=== PATIENT | male | born 1990 | race Caucasian/White ===

== ENCOUNTER 2016-12-17 07:42 | Emergency (ER) | payer MEDICAID ==
[2016-12-17 07:54] VITALS: BP 161/84
[2016-12-17] MEDS ORDERED: Bupivacaine 0.5% 10 ML SDV INJECT ONE (08:03)
--- NOTE | 2016-12-17 08:07 | EDM.PDOC ---
ED HPI ENT - General Chief Complaint: ENT Problem Stated Complaint: BROKEN TOOTH Time Seen by Provider: 12/17/16 07:57 Source of Information: Reports: Patient History Limitations: Reports: No limitations - History of Present Illness INITIAL COMMENTS - FREE TEXT/NARRATIVE: The patient presents with a fractured tooth. This happened a couple days ago. It is in the right lower jaw and the 2nd molar is broken. He denies fever or chills. Timing/Duration: Reports: Day(s): (2) Severity: severe Location: Reports: mouth Quality: Reports: Sharp Improves with: Reports: None Worsens with: Reports: None Associated Symptoms: Reports: no other symptoms - Related Data Allergies/ADRs: Allergies Allergy/AdvReac Type Severity Reaction Status Date / Time amoxicillin Allergy Nausea and Verified 12/17/16 07:54 Vomiting Penicillins Allergy Nausea and Verified 12/17/16 07:54 Vomiting Home Meds: Home Meds Clindamycin HCl 150 mg PO Q6HR #30 capsule 12/17/16 [Rx] oxyCODONE HCl/Acetaminophen [Percocet 5-325 mg Tablet] 1 - 2 each PO Q6HR PRN # 20 tablet 12/17/16 [Rx] Past Medical History - Past Health History Medical/Surgical History: Denies Medical/Surgical History - Past Surgical History HEENT Surgical History: Reports: Adenoidectomy, Oral surgery, Tonsillectomy Social & Family History - Tobacco Use Smoking Status *Q: Never Smoker - Caffeine Use Caffeine Use: Reports: None - Recreational Drug Use Recreational Drug Use: Yes Drug Use in Last 12 Months: Yes Recreational Drug Type: Reports: Marijuana/Hashish Recreational Drug Use Frequency: Socially ED ROS ENT - Review of Systems Review Of Systems: See Below Constitutional: Reports: no symptoms HEENT: Reports: Dental pain Respiratory: Reports: No Symptoms Cardiovascular: Reports: No symptoms Endocrine: Reports: no symptoms GI/Abdominal: Reports: No symptoms : Reports: no symptoms Musculoskeletal: Reports: no symptoms ED EXAM, ENT - Physical Exam Exam: See Below Exam Limited By: No limitations General Appearance: alert, no apparent distress Ears: normal external exam Nose: normal inspection Mouth/Throat: Dental pain, Dental tenderness, Other (Fractured second molar in the right lower jaw). No: Dental abcess Head: atraumatic, normocephalic Neck: normal inspection Respiratory/Chest: no respiratory distress Course - Vital Signs Last Recorded V/S: Last Vital Signs Temp 96.4 F 12/17/16 07:52 Pulse 84 12/17/16 07:52 Resp 16 12/17/16 07:52 BP 161/84 H 12/17/16 07:52 Pulse Ox 100 12/17/16 07:52 - Orders/Labs/Meds Meds: Medications Discontinued Medications Generic Name Dose Route Start Last Admin Trade Name Freq PRN Reason Stop Dose Admin Bupivacaine HCl 10 ml 12/17/16 08:03 12/17/16 08:14 Sensorcaine-Mpf 0.5% INJECT 12/17/16 08:04 10 ml ONETIME ONE Administration - Re-Assessments/Exams Free Text/Narrative Re-Assessment/Exam: 12/17/16 08:17 I did a dental block to his right inferior alveolar nerve. I used 3ccs of 0.5% bupivicaine. He had good anaiesthesia and there was no complications. Departure - Departure Time of Disposition: 08:20 Disposition: Home, Self-Care 01 Condition: good Clinical Impression: Dental caries Fracture of tooth Qualifiers: Encounter type: initial encounter Fracture type: closed Qualified Code(s): S02.5XXA - Fracture of tooth (traumatic), initial encounter for closed fracture Prescriptions: Clindamycin HCl 150 mg PO Q6HR #30 capsule oxyCODONE HCl/Acetaminophen [Percocet 5-325 mg Tablet] 1 - 2 each PO Q6HR PRN # 20 tablet PRN Reason: Pain Forms: ED Department Discharge Additional Instructions: Take the clindamysin every 6 hours until gone. Take the percocet as needed for pain. Follow up with your dentist.
== END 2016-12-17 08:30 | disposition home or self-care (01) ==
LOC: JD.ED 07:42
DX: S02.5XXA Fracture of tooth (traumatic), initial encounter for closed fracture (principal); K02.9 Dental caries, unspecified; Z98.890 Other specified postprocedural states; Z88.0 Allergy status to penicillin; Z88.1 Allergy status to other antibiotic agents
CPT/HCPCS: 64400; 99283-25